=== PATIENT | female | born 1995 | race Caucasian/White ===

== ENCOUNTER → 2017-08-02 | Day surgery (SDC) | payer BC ==
[~2017-08-02] VITALS: Ht 160 cm; Wt 59.7 kg
[~2017-08-02] MED LIST: *morphine SULFATE 10 MG/ML PERIprocedure ONLY ONE; ACETAMINOPHEN 1000 MG/100 ML 100 ML IV ONE; ALPR.5 PO; CHLORHEXIDINE GLUCONATE 2 % 1 PACK (2 CLOTHS) TOPICAL PRN; DEXAMETHASONE SOD PHOS 4 MG/ML VIAL IV ONE; DO NOT ADM ANY ANTICOAGULANT DRUGS PRN; FEXO15TA PO; KETOROLAC TROMETHAMINE 30 MG/ML (IVP) VIAL IV PUSH ONE; LACTATED RINGER'S 1000 ML INJ 1,000 ML IV ONE; LACTATED RINGER'S 1000 ML IV PRN; LIDOCAINE HCL 1% PF 5 ML SYRINGE OTHER ONE; METOPROLOL TARTRATE 25 MG TAB PO PRN; MIDAZOLAM HCL 2 MG/2 ML VIAL ONE; MORPHINE SULFATE 4 MG/ML INJ ONE; ONDANSETRON HCL 4 MG/2 ML VIAL IV ONE; ONDANSETRON HCL 4 MG/2 ML VIAL ONE; PERC5TAB12 PO; POVIDONE IODINE 5% (ANTISEPSIS KIT) 4 APPLICATIONS EACH NARE PRN; PROCHLORPERAZINE 25 MG SUPP RECTAL ONE; PROPOFOL 200 MG/20 ML AMP IV ONE; ROCURONIUM INJ 50 MG/5 ML SYRINGE IV PUSH ONE; SODIUM CHLORID 0.9% 500 ML IV PRN; TRINTAB7 PO; VENTAER INH
[2017-08-02 09:09] LABS: AUTOMATED NEUTROPHIL # 3.4 TH/MM3 (1.8-7.7); BASOPHIL % 0.7 % (0.0-2.0); EOSINOPHIL # 0.1 TH/MM3 (0-0.4); EOSINOPHIL % 2.6 % (0.0-4.0); HEMATOCRIT 37.1 % (35.0-46.0); HEMOGLOBIN 12.6 GM/DL (11.6-15.3); LYMPH % 24.2 % (9.0-44.0); LYMPHOCYTE # 1.3 TH/MM3 (1.0-4.8); MEAN CELL VOLUME 87.2 FL (80.0-100.0); MEAN CORPUSCULAR HEMOGLOBIN 29.6 PG (27.0-34.0); MEAN CORPUSCULAR HGB CONC 33.9 % (32.0-36.0); MEAN PLATELET VOLUME 8.9 FL (7.0-11.0); MONO % 10.3 % (0.0-8.0); MONOCYTE # 0.6 TH/MM3 (0-0.9); NEUT % 62.2 % (16.0-70.0); PLATELET COUNT 205 TH/MM3 (150-450); RED BLOOD COUNT 4.26 MIL/MM3 (4.00-5.30); RED CELL DISTRIBUTION WIDTH 14.2 % (11.6-17.2); WHITE BLOOD COUNT 5.5 TH/MM3 (4.0-11.0)
--- NOTE | 2017-08-02 11:12 | PD.OP ---
Operative Report Date of Surgery: Aug 02, 2017 Preoperative Diagnosis: (1) Dysfunctional uterine bleeding Postoperative Diagnosis: (1) Dysfunctional uterine bleeding Procedure: D&C with hysteroscopy Anesthesia: general Surgeon: Faizan Ball Protein Specialist(s): Faizan Nielsen MD Aug 02, 2017 11:12
--- NOTE | 2017-08-02 11:15 | HHI.DCPOC ---
Discharge Care Plan Diagnosis: (1) Dysfunctional uterine bleeding Report Symptoms to Your Doctor -Temperature above 100.5 degrees -Redness, of incision or excessive or foul smelling drainage -Unusual pain or calf pain -Increased vaginal bleeding -Painful or difficulty urinating -Feelings of extreme sadness or anxiety after 2 weeks Goals to Promote Your Health * To prevent worsening of your condition and complications * To maintain your health at the optimal level Directions to Meet Your Goals Take your medications as prescribed Follow your dietary instruction Follow activity as directed Ensure plenty of rest for recovery Drink fluids for hydration Keep your appointments as scheduled Take your immunizations and boosters as scheduled If your symptoms worsen call your PCP, if no PCP go to Urgent Care Center or Emergency Room Smoking is Dangerous to Your Health. Avoid second hand smoke Call the 24-hour crisis hotline for domestic abuse at Faizan Ball MD Aug 02, 2017 11:15
--- NOTE | 2017-08-02 11:31 | MP ---
cc: Faizan Ball MD DATE OF OPERATION: 08/02/2017 PROCEDURE PERFORMED: Dilatation and curettage, hysteroscopy. PREOPERATIVE DIAGNOSIS: Dysfunctional uterine bleeding. POSTOPERATIVE DIAGNOSIS: Uterine polyps and dysfunctional bleeding. SURGEON: Faizan Ball MD ESTIMATED BLOOD LOSS: Less than 20 mL. COMPLICATIONS: None. ANESTHESIA: General, Dr. Jaime Shoemaker. PROCEDURE IN DETAIL: After obtaining informed consent, the patient was taken to the operating room where she was placed under general anesthesia, placed in supine position with legs in the candy cane stirrups. The abdomen, perineum, and vagina were prepped and draped in normal sterile fashion. Bladder was drained with a red Vasquez catheter. Time-out was taken prior to starting the case. A speculum was placed in the vagina. The cervix grasped with a single-tooth tenaculum. The cervix was dilated to accommodate a hysteroscope. I passed the hysteroscope to the fundus. Both fallopian tubes were seen. Tubal ostia were patent and appeared normal. She had some polyps at the fundal region and some polyps at the endocervical endometrial canal. All these polyps were removed. The hysteroscope was passed one more time. All polyps were removed after curetting was performed. The patient tolerated the procedure well. She was taken to the recovery room in stable condition after being awakened. All lap and instruments reported as correct and all instruments were removed from the vagina. The only specimen included an endometrial curettings. Faizan Ball MD JWM/DL , 11:09 AM , 11:30 AM
[2017-08-02 12:45] VITALS: BP 105/59; PULSE 70; RESP 20; TEMP 98; O2SAT 97
== END | disposition home or self-care (01) ==
LOC: HSDC 08:08
PROVIDERS: ATTEND Obstetrics & Gynecology
DX: N84.0 Polyp of corpus uteri (principal); N93.8 Other specified abnormal uterine and vaginal bleeding; J45.909 Unspecified asthma, uncomplicated
CPT/HCPCS: 00952; 58558; 84702; 85025; 88305; J0131; J1100; J1885; J2250; J2270; J2405; J3010; J7120